=== PATIENT | male | born 1985 | race Caucasian/White ===

== ENCOUNTER 2016-10-28 09:38 | Inpatient (IN) | payer SELFPAY ==
[2016-10-28 10:01] LABS: MPV 9.3 fL (7.4-10.4)
[2016-10-28 10:21] LABS: SEG NEUTROPHIL 76 % (45-76)
[2016-10-28 10:26] LABS: BLOOD UREA NITROGEN 17 MG/DL (9-20); CALCIUM 8.9 MG/DL (8.4-10.2); CALCULATED OSMOLALITY 258 MOs/Kg (270-290); CHLORIDE 96 mEq/L (98-107); GLUCOSE 112 MG/DL (70-99); SODIUM LEVEL 132 mEq/L (137-146)
[2016-10-28] MEDS ORDERED: Pharmacy Review for Metformin - IV Contrast Given SCH (11:00)
--- NOTE | 2016-10-28 11:06 | EDPRACDOC ---
- General Information Chief Complaint: Abdominal Pain Stated Complaint: LOWER ABD PAIN Time Seen by Provider: 10/28/16 10:43 Mode Of Arrival: Car Home Medications: Home Medications No Home Medications 10/28/16 Allergies/Adverse Reactions: Allergies Allergy/AdvReac Type Severity Reaction Status Date / Time No Known Allergies Allergy Verified 10/28/16 09:48 - History of Present Illness Onset: 1 WEEK HPI: RLQ PAIN SINCE SUNDAY, WORSE SUNDAY. DECREASED PO INTAKE. PAIN 3/10 CURRENTLY. FEVERS INTERMITTENT. PAIN WORSE WITH EATING, BETTER WITH TYLENOL. ED Past Medical History - Patient Medical History Systemic History: Denies: Cancer EDM Review of Systems - Review of Systems ROS Negative Except as Marked: Yes All systems reviewed and were negative except as marked Constitutional: Fever, Loss of Appetite - Physical Exam Constitutional: Alert (Awake), No apparent distress Oriented to: Time, Person, Place Last recorded Vital Signs: Last Vital Signs Temp 97.8 F 10/28/16 09:45 Pulse 75 10/28/16 11:49 Resp 18 10/28/16 11:49 BP 146/86 10/28/16 11:49 Pulse Ox 98 10/28/16 11:49 Oxygen Pulse Oxygen Saturation 98 O2 Device Room Air Oxygen Flow Rate Fraction of Inspired Oxygen ( FIO2) - HEENT Head: Normal ( normocephalic) Eye Exam: Normal (PERRL, EOMI, Sclera white) Oropharynx: Normal (Pharynx:Moist without exudate,Gums-no swelling) Nose: No Symptoms Reported (septum midline) Neck: Normal (FROM, trachea at midline) - Respiratory/Cardiovascular Respiratory: Normal - CTA (BBS clear to auscultation without adventitious sounds ) Cardiovascular: Normal (RRR without murmur, gallop or rub) - GI Auscultation: Normal (NABS) Palpation: Normal (Soft,No rebound or guarding, non distended) Tenderness: Moderate, RLQ Bryant's Sign: Negative - Musculoskeletal Back: Normal (Non-Tender) Extremities: Normal (Normal tone, Pulses 2+ No cyanosis or edema, FROM) - Integumentary Skin: Normal, Warm, Dry Lymphatics: Normal (no adenopathy) - Neurologic Memory Impaired: Normal Motor Function: Normal (Normal tone, Pulses 2+ No cyanosis or edema, FROM) Cranial Nerve: Normal (CN II-X11 intact sensation, strength 5/5) Cerebellar: Normal Mood Description: Normal Perception: Normal - Results 10/28/16 09:52 10/28/16 09:52 WBC 22.7 xk/uL (3.8-10.8) H 10/28/16 09:52 RBC 5.44 xM/uL (4.70-6.10) 10/28/16 09:52 Hgb 15.6 g/dL (14.0-18.0) 10/28/16 09:52 Hct 46.0 % (42-52) 10/28/16 09:52 MCV 85 fL (80-94) 10/28/16 09:52 MCH 28.8 pg (27-32) 10/28/16 09:52 MCHC 34.0 g/dl (33-36) 10/28/16 09:52 RDW 13.6 % (11.5-14.5) 10/28/16 09:52 Plt Count 309 xk/uL (130-400) 10/28/16 09:52 MPV 9.3 fL (7.4-10.4) 10/28/16 09:52 Neut % (Auto) Cancelled 10/28/16 09:52 Lymph % (Auto) Cancelled 10/28/16 09:52 Clark % (Auto) Cancelled 10/28/16 09:52 Eos % (Auto) Cancelled 10/28/16 09:52 Baso % (Auto) Cancelled 10/28/16 09:52 Absolute Neuts (auto) Cancelled 10/28/16 09:52 Absolute Lymphs (auto) Cancelled 10/28/16 09:52 Seg Neuts % (Manual) 76 % (45-76) 10/28/16 09:52 Band Neutrophils % 5 % (0-5) 10/28/16 09:52 Lymphocytes % (Manual) 13 % (17-44) L 10/28/16 09:52 Monocytes % (Manual) 6 % (0-10) 10/28/16 09:52 Absolute Neutrophils 18.39 xk/uL (1.7-8.2) H 10/28/16 09:52 Absolute Lymphocytes 2.95 xk/uL (0.65-4.75) 10/28/16 09:52 Atypical Lymphocytes Few 10/28/16 09:52 Toxic Granulation 1+ 10/28/16 09:52 Platelet Estimate Norm (NORMAL) 10/28/16 09:52 RBC Morphology Norm 10/28/16 09:52 Sodium 132 mEq/L (137-146) L 10/28/16 09:52 Potassium 3.4 mEq/L (3.5-5.1) L 10/28/16 09:52 Chloride 96 mEq/L (98-107) L 10/28/16 09:52 Carbon Dioxide 22 mMOL/L (22-33) 10/28/16 09:52 Anion Gap 17 mEq/L (8-16) H 10/28/16 09:52 BUN 17 MG/DL (9-20) 10/28/16 09:52 Creatinine 0.80 MG/DL (0.66-1.25) 10/28/16 09:52 Estimated GFR (MDRD) > 60 mL/min (>=60) 10/28/16 09:52 Glucose 112 MG/DL (70-99) H 10/28/16 09:52 Calculated Osmolality 258 MOs/Kg (270-290) L 10/28/16 09:52 Calcium 8.9 MG/DL (8.4-10.2) 10/28/16 09:52 Total Bilirubin 1.7 MG/DL (0.2-1.3) H 10/28/16 09:52 AST 109 IU/L (17-59) H 10/28/16 09:52 ALT 133 IU/L (21-72) H 10/28/16 09:52 Alkaline Phosphatase 212 IU/L (38-126) H 10/28/16 09:52 Total Protein 8.0 G/DL (6.3-8.2) 10/28/16 09:52 Albumin 4.0 G/DL (3.5-5.0) 10/28/16 09:52 Lab Results 10/28/16 10/28/16 09:52 09:52 WBC 22.7 H RBC 5.44 Hgb 15.6 Hct 46.0 MCV 85 MCH 28.8 MCHC 34.0 RDW 13.6 Plt Count 309 MPV 9.3 Neut % (Auto) Cancelled Lymph % (Auto) Cancelled Clark % (Auto) Cancelled Eos % (Auto) Cancelled Baso % (Auto) Cancelled Absolute Neuts (auto) Cancelled Absolute Lymphs (auto) Cancelled Seg Neuts % (Manual) 76 Band Neutrophils % 5 Lymphocytes % (Manual) 13 L Monocytes % (Manual) 6 Absolute Neutrophils 18.39 H Absolute Lymphocytes 2.95 Atypical Lymphocytes Few Toxic Granulation 1+ Platelet Estimate Norm RBC Morphology Norm Sodium 132 L Potassium 3.4 L Chloride 96 L Carbon Dioxide 22 Anion Gap 17 H BUN 17 Creatinine 0.80 Estimated GFR (MDRD) > 60 Glucose 112 H Calculated Osmolality 258 L Calcium 8.9 Total Bilirubin 1.7 H AST 109 H ALT 133 H Alkaline Phosphatase 212 H Total Protein 8.0 Albumin 4.0 - Departure Yes I personally saw and evaluated the patient. Disposition: Admit IP To This Hospital Condition: Stable Final Diagnosis: Acute perforated appendicitis, Abscess, periappendiceal Decision to Admit Time: 12:26 Decision to admit date: 10/28/16 Decision to admit: from ED - Physician Consulted Surgery Time Called: 12:26 Provider Called: Santosh Armas Time Account Resolution Specialist Returned Call: 12:27
[2016-10-28] MEDS ORDERED: ONDANSETRON HCL 4 MG/2 ML VIAL IV ONE (11:53)
[2016-10-28] MEDS ORDERED: PIPERACILLIN AND TAZOBACTAM 4.5 GM in D5W 100 ML IV ONE (12:30)
--- NOTE | 2016-10-28 12:31 | DIRPT ---
CLINICAL DATA: Right lower quadrant pain for 6 days, WBC 22.7 EXAM: CT ABDOMEN AND PELVIS WITH CONTRAST TECHNIQUE: Multidetector CT imaging of the abdomen and pelvis was performed using the standard protocol following bolus administration of intravenous contrast. CONTRAST: 100 cc Isovue COMPARISON: None. FINDINGS: Lung bases are unremarkable. Sagittal images of the spine shows mild degenerative changes lower thoracic spine. Enhanced liver, pancreas, spleen and adrenal glands are unremarkable. Abdominal aorta is unremarkable. No calcified gallstones are noted within gallbladder. Kidneys are symmetrical in size and enhancement. No hydronephrosis or hydroureter. There is inflammatory process in right lower quadrant just posterior to cecum and terminal ileum. Multiple foci of free air are noted in adjacent pericolonic mesentery. There is partially visualized inflamed appendix measures 1.2 cm in diameter axial image 85. There is free air adjacent to appendix base and there is a adjacent mesenteric abscess measures at least 4.3 cm. Findings are highly suspicious for perforated appendicitis with periappendiceal abscess. The terminal ileum and cecum are empty collapsed. There is no small bowel obstruction. There is stranding of mesenteric fat and right lower quadrant surrounding the posterior cecum. Small mesenteric lymph nodes are noted the largest measures 1.3 cm probable reactive. No distal colonic obstruction. There is mild thickening of mid sigmoid colon wall just lateral to inflammatory process in right lower quadrant probable satellite inflammation. The urinary bladder is unremarkable. Prostate gland and seminal vesicles are unremarkable. Small amount of free fluid with enhancing wall is noted in posterior pelvis just above the distal sigmoid colon axial image 86 measures 3.4 cm. This is suspicious for infected loculated peritoneal fluid. IMPRESSION: 1. There is significant inflammatory process in right lower quadrant posterior to the cecum and terminal ileum measures at least 12 cm. Significant stranding of mesenteric fat and multiple foci of free air are noted within mesentery. There is a inflamed appendix partially visualized. There is an abscess at the appendix base region measures at least 4.3 cm. Findings are consistent with perforated appendicitis and periappendiceal abscess. There is some satellite inflammation of the wall of mid sigmoid colon. 2. No small bowel obstruction. 3. Small reactive lymph nodes are noted in right lower quadrant mesentery. 4. No hydronephrosis or hydroureter. 5. Unremarkable urinary bladder. Small amount of free fluid with enhancing wall is noted in posterior pelvis just above the distal sigmoid colon axial image 86 measures 3.4 cm. This is suspicious for infected loculated peritoneal fluid. Electronically Signed By: Silvino Pearl M.D. On: 10/28/2016 12:28
[2016-10-28] MEDS ORDERED: ACETAMINOPHEN 650 MG SUPP PR PRN (12:56)
[2016-10-28] MEDS ORDERED: ONDANSETRON HCL 4 MG/2 ML VIAL IV PRN (12:57)
[2016-10-28] MEDS ORDERED: PROMETHAZINE 25 MG/ML VIAL IV PRN (12:58)
[2016-10-28] MEDS ORDERED: MORPHINE 2 MG/ML INJECTION IV PRN ×2 (13:00→13:15)
[2016-10-28] MEDS ORDERED: OXYCODONE HCL 5 MG TABLET PO PRN ×3 (13:01→13:17)
[2016-10-28] MEDS: NS 1,000 ML IV SCH ×2 (13:22→23:23)
[2016-10-28] MEDS ORDERED: METRONIDAZOLE 500 MG IV SCH (14:00)
[2016-10-28] MEDS ORDERED: Vaccine Screening Complete SCH (14:00)
[2016-10-28] MEDS: METRONIDAZOLE 500 MG IV SCH ×2 (14:43→19:18)
--- NOTE | 2016-10-28 15:04 | HISTPHYS ---
- Chief Complaint RLQ Pain - History of Present Illness 31 YO WM came to ER with increasing RLQ abd pain. Had pain initially about a week or more ago. Had some fever but this went away. No current N/V. NO alleviating factors. Came to ER and was found to have periappendiceal abscess. - Medical History Cardiac History: Reports: No Significant History Respiratory History: Reports: No Significant History GI/ History: Reports: No Significant History Musculoskeletal History: Reports: No Significant History Systemic History: Denies: Cancer Neurological History: Reports: No Significant History - Surgical History Reports: No Significant History - Medictions/Allergies Allergies No Known Allergies Allergy (Verified 10/28/16 09:48) Home Medications No Home Medications 10/28/16 - Social History Travel Outside of [place] in the Last 3 Months?: No Smoking Status: Never smoker - Review of Systems Constitutional: Fever, Loss of Appetite. negative: Chills Eyes: negative: Blurred Vision, Pain Ears: negative: Hearing Loss, Tinnitus Nose: negative: Discharge, Deformity Respiratory: negative: Cough, Hemoptysis, Shortness of Breath, Wheezing Cardiovascular: negative: Chest Pain, Edema, Orthopnea, Palpitations Gastrointestinal: Nausea, Abdominal Pain. negative: Vomiting, Diarrhea, Melena , Hematochezia Neurological: negative: Headache, Numbness, Seizure Musculoskeletal:: negative: Joint Pain, Muscle Pain Integumentary: negative: Itching, Rash, Wound Allergic/Immunologic: negative: Hives, Itching Hematologic: negative: Easy Bruising, Easy Bleeding Endocrine: negative: Weight Gain, Weight Loss, Excessive Thirst, Excessive Hunger Psychiatric: negative: Anxiety, Depression - Physical Exam Vital Signs: Initial Vitals Temperature 97.8 F 10/28/16 09:45 Pulse Rate 90 10/28/16 09:45 Respiratory Rate 20 10/28/16 09:45 Blood Pressure 155/96 10/28/16 09:45 Pulse Oxygen Saturation 97 10/28/16 09:45 Constitutional: No apparent distress, Alert, Agitated Oriented to: Time, Person, Place - HEENT Head: Normal. negative: Swelling, Tender Eye: negative: Edema, Scleral Icterus Nose: negative: Congestion, Discharge, Deformity Respiratory: Normal - CTA. negative: Rales, Rhonchi, Wheezes Cardiovascular: negative: Bradycardia, Irregular - GI Auscultation: Normal Palpation: negative: Enlarged liver, Mass Tenderness: Moderate, RLQ Bryant's Sign: Negative - Musculoskeletal Back: negative: Ecchymosis, CVA Tenderness Extremities: negative: Calf Tenderness, Clubbing, Cyanosis, Edema - Integumentary Skin: Warm, Dry Lymphatics: negative: Adenopathy, Inguinal Erythema - Neurologic Cranial Nerve: Normal (CN II-XII intact sensation, strength 5/5) Mood Description: Normal, Appropriate. negative: Agitated Thought: negative: Coherent, Delusions - Lab Results Labs noted CT scan reviewed - Assessment/Plan (1) RLQ abdominal pain R10.31 - RIGHT LOWER QUADRANT PAIN Acute Present on Admission: Yes (2) Leukocytosis D72.829 - ELEVATED WHITE BLOOD CELL COUNT, UNSPECIFIED Acute Present on Admission: Yes L (3) Appendicitis with abscess K35.3 - ACUTE APPENDICITIS WITH LOCALIZED PERITONITIS Acute Present on Admission: Yes Plan: Patient will need admission and IVF and IV antibiotics. Will need to arrange for percutaneous drainage of abscess.
[2016-10-28 15:39] LABS: LEUKOCYTES/URINE NEG (NEGATIVE); NITRITE/URINE NEG (NEGATIVE); URINE OCCULT BLOOD 1+ (NEG/TRACE); WBC/URINE 0-2 (0-2)
[2016-10-28] MEDS: PIPERACILLIN AND TAZOBACTAM 3.375 GM in D5W 100 ML IV SCH ×2 (17:30→23:23)
[2016-10-28] MEDS: MORPHINE 2 MG/ML INJECTION IV PRN ×3 (17:35→23:26)
[2016-10-29] MEDS: METRONIDAZOLE 500 MG IV SCH ×4 (01:30→19:45)
[2016-10-29] MEDS: MORPHINE 2 MG/ML INJECTION IV PRN ×8 (01:32→22:02)
[2016-10-29] MEDS: NS 1,000 ML IV SCH ×4 (03:53→17:06)
[2016-10-29] MEDS: PIPERACILLIN AND TAZOBACTAM 3.375 GM in D5W 100 ML IV SCH ×3 (05:28→17:05)
[2016-10-29 07:24] LABS: AUTOMATED BASOPHIL 0.3 % (0-2); AUTOMATED EOSINOPHIL 0.4 % (0-5); AUTOMATED MONOCYTE 11.5 % (3-10); AUTOMATED NEUTROPHIL 79.8 % (45-76); MPV 9.3 fL (7.4-10.4)
[2016-10-29 07:43] LABS: BLOOD UREA NITROGEN 14 MG/DL (9-20); CALCIUM 8.1 MG/DL (8.4-10.2); CALCULATED OSMOLALITY 256 MOs/Kg (270-290); CHLORIDE 93 mEq/L (98-107); GLUCOSE 102 MG/DL (70-99); SODIUM LEVEL 132 mEq/L (137-146)
--- NOTE | 2016-10-29 12:02 | PCM.SURGRO ---
- Subjective Patient: Reports: Feels better, Still having pain - Objective / Physical Exam Vital Signs: Temperature: 98.9 F (10/29/16 10:12) HR: 71 (10/29/16 10:12)RR: 20 (10/29/16 10: 12) BP: 135/76 (10/29/16 10:12)Pulse Ox: 96 (10/29/16 10:12) General: Alert, Oriented x3, Cooperative HEENT: Normal, EOMI, Anicteric Sclera Respiratory: Normal - CTA. negative: Rales, Rhonchi, Wheezes Cardiovascular: Regular rate and rhythm, No Gallops,Rubs/Murmurs Gastrointestinal: Soft, Tender (RLQ) Back: Normal. negative: Ecchymosis, CVA Tenderness Extremities: negative: Swelling, Edema, Clubbing, Cyanosis Psych/Mental Status: Appropriate, Cooperative. negative: Agitated, Anxious Neurological: Normal speech. negative: Drowsy, Somnolent Skin: Warm,Dry and Intact, No rashes, No breakdown Laboratory/Diagnostics Reviewed: 10/29/16 06:45 10/29/16 06:45 Laboratory Results - last 24 hr 10/28/16 10/29/16 10/29/16 15:30 06:45 06:45 WBC 17.9 H RBC 4.89 Hgb 13.8 L D Hct 41.4 L MCV 85 MCH 28.3 MCHC 33.4 RDW 13.8 Plt Count 275 MPV 9.3 Neut % (Auto) 79.8 H Lymph % (Auto) 8.0 L Ponce % (Auto) 11.5 H Eos % (Auto) 0.4 Baso % (Auto) 0.3 Absolute Neuts (auto) 14.14 H Absolute Lymphs (auto) 1.43 Sodium 132 L Potassium 4.1 Chloride 93 L Carbon Dioxide 27 Anion Gap 16 BUN 14 Creatinine 0.90 Estimated GFR (MDRD) > 60 Glucose 102 H Calculated Osmolality 256 L Calcium 8.1 L Urine Color Yellow Urine Clarity Sl hzy Urine pH 5.0 Ur Specific [place] 1.020 Urine Protein Neg Urine Glucose (UA) Neg Urine Ketones 1+ H Urine Occult Blood 1+ H Urine Nitrite Neg Urine Bilirubin Neg Urine Urobilinogen 0.2 Ur Leukocyte Esterase Neg Urine RBC 2-5 H Urine WBC 0-2 Ur Epithelial Cells Occ - Assessment and Plan (1) RLQ abdominal pain Acute R10.31 - RIGHT LOWER QUADRANT PAIN Present on Admission: Yes (2) Leukocytosis Acute D72.829 - ELEVATED WHITE BLOOD CELL COUNT, UNSPECIFIED Present on Admission: Yes L (3) Appendicitis with abscess Acute K35.3 - ACUTE APPENDICITIS WITH LOCALIZED PERITONITIS Present on Admission: Yes Plan: WBC decreased. Cont with IV antibiotics. Plan to have percutaneous drainage of abscess tomorrow by Int Rad.
[2016-10-30] MEDS: PIPERACILLIN AND TAZOBACTAM 3.375 GM in D5W 100 ML IV SCH ×5 (01:03→22:38)
[2016-10-30] MEDS: MORPHINE 2 MG/ML INJECTION IV PRN ×9 (01:08→22:40)
[2016-10-30] MEDS: METRONIDAZOLE 500 MG IV SCH ×4 (03:32→20:31)
[2016-10-30] MEDS: NS 1,000 ML IV SCH ×4 (06:23→20:31)
[2016-10-30 07:23] LABS: MPV 9.1 fL (7.4-10.4)
[2016-10-30 07:27] LABS: PARTIAL THROMB. TIME 25.9 SEC (22-35); PT-INR 1.2
[2016-10-30 07:35] LABS: BLOOD UREA NITROGEN 9 MG/DL (9-20); CALCULATED OSMOLALITY 255 MOs/Kg (270-290); CHLORIDE 98 mEq/L (98-107); GLUCOSE 113 MG/DL (70-99); SODIUM LEVEL 132 mEq/L (137-146)
[2016-10-30 08:03] LABS: SEG NEUTROPHIL 66 % (45-76)
--- NOTE | 2016-10-30 13:42 | PCM.SURGRO ---
- Subjective Patient: Reports: No new complaints, Feels better - Objective / Physical Exam Vital Signs: Temperature: 99.2 F (10/30/16 05:29) HR: 74 (10/30/16 05:29)RR: 20 (10/30/16 05: 29) BP: 132/33 (10/30/16 05:29)Pulse Ox: 96 (10/30/16 05:29) General: Alert, Oriented x3, Cooperative HEENT: Normal, EOMI, Anicteric Sclera Respiratory: Normal - CTA. negative: Diminished, Rales, Retractions, Rhonchi, Stridor Cardiovascular: Regular rate and rhythm, No Gallops,Rubs/Murmurs, Good Pedal Pulses Gastrointestinal: Soft, Tender. negative: Guarding, Firm Back: negative: Ecchymosis, CVA Tenderness Extremities: Normal pulses. negative: Swelling, Clubbing, Cyanosis Psych/Mental Status: Appropriate, Normal Affect, Cooperative. negative: Agitated, Anxious Skin: Warm,Dry and Intact, No rashes Laboratory/Diagnostics Reviewed: 10/30/16 06:55 10/30/16 06:55 Laboratory Results - last 24 hr 10/30/16 10/30/16 10/30/16 06:55 06:55 06:55 WBC 17.9 H RBC 4.72 Hgb 13.6 L Hct 40.2 L MCV 85 MCH 28.7 MCHC 33.8 RDW 13.7 Plt Count 273 MPV 9.1 Neut % (Auto) Cancelled Lymph % (Auto) Cancelled Snyder % (Auto) Cancelled Eos % (Auto) Cancelled Baso % (Auto) Cancelled Absolute Neuts (auto) Cancelled Absolute Lymphs (auto) Cancelled Seg Neuts % (Manual) 66 Band Neutrophils % 20 H Lymphocytes % (Manual) 11 L Monocytes % (Manual) 1 Metamyelocytes % 1 H Myelocytes % 1 H Absolute Neutrophils 15.39 H Absolute Lymphocytes 1.97 Toxic Granulation 1+ Platelet Estimate Norm RBC Morphology Norm PT 12.0 H INR 1.2 APTT 25.9 Sodium 132 L Potassium 3.5 Chloride 98 Carbon Dioxide 23 Anion Gap 15 BUN 9 Creatinine 0.60 L Estimated GFR (MDRD) > 60 Glucose 113 H Calculated Osmolality 255 L Calcium 8.0 L - Assessment and Plan (1) RLQ abdominal pain Acute R10.31 - RIGHT LOWER QUADRANT PAIN Present on Admission: Yes (2) Leukocytosis Acute D72.829 - ELEVATED WHITE BLOOD CELL COUNT, UNSPECIFIED Present on Admission: Yes L (3) Appendicitis with abscess Acute K35.3 - ACUTE APPENDICITIS WITH LOCALIZED PERITONITIS Present on Admission: Yes Plan: Spoke with interventional radiology today. They will arrange to have percutaneous drainage fo abscess tomorrow in AM. Cont with IV antibiotics.
[2016-10-31] MEDS: METRONIDAZOLE 500 MG IV SCH ×4 (01:43→19:38)
[2016-10-31] MEDS: MORPHINE 2 MG/ML INJECTION IV PRN ×9 (01:46→23:58)
[2016-10-31] MEDS: PIPERACILLIN AND TAZOBACTAM 3.375 GM in D5W 100 ML IV SCH ×4 (04:33→23:58)
[2016-10-31] MEDS ORDERED: FENTANYL 100 MCG/2 ML VIAL ONE (08:02)
[2016-10-31] MEDS ORDERED: MIDAZOLAM 2 MG/2 ML VIAL ONE (08:02)
[2016-10-31] MEDS ORDERED: NALOXONE 0.4 MG/ML AMPULE ONE (08:03)
[2016-10-31] MEDS ORDERED: FLUMAZENIL 0.1 MG/ML INJ 5 ML VIAL IV ONE (08:03)
[2016-10-31] MEDS ORDERED: LIDOCAINE 1% 5 ML (METHYLPARABEN FREE) ONE (08:03)
--- NOTE | 2016-10-31 09:07 | DIRPT ---
CLINICAL DATA: Perforated appendicitis with extraluminal pockets of air and fluid by prior CT. Evaluation is performed prior to potential percutaneous drainage of appendiceal abscess. EXAM: CT PELVIS WITHOUT CONTRAST TECHNIQUE: Multidetector CT imaging of the pelvis was performed following the standard protocol without intravenous contrast. COMPARISON: 10/28/2016 FINDINGS: Overall appearance of a complex and multiloculated ruptured appendicitis is worse compared to the prior study. More extensive extraluminal air pockets are seen extending superiorly in the right lower quadrant mesentery with overall craniocaudad extent of inflammation measuring approximately 14.5 cm. There also are larger multiple pockets of fluid around the ruptured appendix. The distal ileum show secondary inflammation and thickening. No evidence of significant small bowel obstruction or ileus of bowel. Some ingested oral contrast does reach the proximal colon. Extraluminal air appears to be confined to the extensive right lower quadrant inflammatory process with no significant pockets of free air in the nondependent peritoneal cavity. No visualize appendicolith by CT. IMPRESSION: 1. Significant worsening of multiloculated ruptured appendicitis with more extensive extraluminal pockets of air and fluid seen throughout the right lower quadrant mesentery. 2. After discussion with Dr. Armas by telephone, it was decided to not pursue percutaneous catheter drainage under CT guidance today given interval evidence of significant worsening by CT. Electronically Signed By: Ariel Malhotra M.D. On: 10/31/2016 09:05
[2016-10-31] MEDS ORDERED: Fluconazole 400 mg in NS 400 MG/200 ML RTU IV ONE (11:00)
--- NOTE | 2016-10-31 11:06 | PCM.SURGRO ---
- Subjective Patient: Reports: No new complaints, Feels better - Objective / Physical Exam Vital Signs: Temperature: 98.6 F (10/31/16 08:00) HR: 78 (10/31/16 08:00)RR: 18 (10/31/16 08: 00) BP: 130/74 (10/31/16 08:00)Pulse Ox: 97 (10/31/16 08:00) General: Alert, Oriented x3, Cooperative HEENT: Normal, Anicteric Sclera Respiratory: Normal - CTA. negative: Diminished, Rales, Rhonchi, Wheezes Cardiovascular: Regular rate and rhythm, No Gallops,Rubs/Murmurs Gastrointestinal: Soft, Tender. negative: Distended Back: negative: Ecchymosis, CVA Tenderness Extremities: negative: Tenderness, Swelling, Edema, Clubbing Psych/Mental Status: negative: Cooperative, Anxious Skin: No rashes, No breakdown Laboratory/Diagnostics Reviewed: 10/30/16 06:55 10/30/16 06:55 - Assessment and Plan (1) RLQ abdominal pain Acute R10.31 - RIGHT LOWER QUADRANT PAIN Present on Admission: Yes (2) Leukocytosis Acute D72.829 - ELEVATED WHITE BLOOD CELL COUNT, UNSPECIFIED Present on Admission: Yes L (3) Appendicitis with abscess Acute K35.3 - ACUTE APPENDICITIS WITH LOCALIZED PERITONITIS Present on Admission: Yes Plan: Patient with perforated appendix with abscess. He was sched to have percutaneous drainage today. After reviewing CT it appears that this would not help resolve the underlying problem as it looks worse than before despite antibiotic therapy. Will need to have surgical drainage but this may also need bowel resection. He understands and agrees to proceed with surgical intervention. Risks of bleeding, infection, and even need for ostomy all discussed. All his questions were answered.
[2016-10-31] MEDS: NS 1,000 ML IV SCH ×3 (11:13→22:13)
[2016-11-01] MEDS: METRONIDAZOLE 500 MG IV SCH ×4 (01:44→20:30)
[2016-11-01] MEDS: MORPHINE 2 MG/ML INJECTION IV PRN ×2 (04:10→08:51)
[2016-11-01] MEDS: PIPERACILLIN AND TAZOBACTAM 3.375 GM in D5W 100 ML IV SCH ×4 (05:31→23:27)
[2016-11-01] MEDS: NS 1,000 ML IV SCH ×4 (05:31→20:34)
[2016-11-01] MEDS ORDERED: NEOSTIGMINE 1 MG/1 ML (1:1000) INJ 10 ML MDV IM ONE (10:00)
[2016-11-01] MEDS ORDERED: MIDAZOLAM 2 MG/2 ML VIAL IV ONE (10:00)
[2016-11-01] MEDS ORDERED: ROCURONIUM 50 MG/5 ML VIAL IV ONE (10:00)
[2016-11-01] MEDS ORDERED: PROPOFOL 200 MG/20 ML VIAL IV ONE (10:00)
[2016-11-01] MEDS ORDERED: ONDANSETRON HCL 4 MG/2 ML VIAL IV ONE (10:00)
[2016-11-01] MEDS ORDERED: DEXAMETHASONE 4 MG/ML VIAL IV ONE (10:00)
[2016-11-01] MEDS ORDERED: HYDROmorphone 2 MG/ML VIAL IM ONE (10:00)
[2016-11-01] MEDS ORDERED: VECURONIUM 10 MG VIAL IV ONE (10:00)
[2016-11-01] MEDS ORDERED: GLYCOPYRROLATE 1 MG VIAL IM ONE (10:00)
[2016-11-01] MEDS: Fluconazole 200 mg in NS 200 MG/100 ML ML IV SCH (10:27)
[2016-11-01] MEDS ORDERED: PROMETHAZINE 25 MG/ML VIAL IV PRN ×2 (13:00)
[2016-11-01] MEDS ORDERED: ONDANSETRON HCL 4 MG ODT TAB PO PRN (13:00)
[2016-11-01] MEDS ORDERED: ONDANSETRON HCL 4 MG/2 ML VIAL IV PRN (13:00)
[2016-11-01] MEDS ORDERED: hydrALAZINE 20 MG/ML VIAL IV PRN (13:00)
[2016-11-01] MEDS ORDERED: HYDROmorphone 1 MG INJECTION IV PRN ×2 (13:00)
[2016-11-01] MEDS ORDERED: MEPERIDINE 25 MG/ML TUBEX IV PRN (13:00)
[2016-11-01] MEDS ORDERED: LABETALOL 20 MG/4 ML SYRINGE IV PRN (13:00)
[2016-11-01] MEDS ORDERED: FENTANYL 100 MCG/2 ML VIAL IV PRN ×2 (13:00)
--- NOTE | 2016-11-01 13:01 | SC.ANESPOS ---
[id number], Hemodynamically Stable, Pain Control Adequate Phase I & II Recovery Complete: Yes Apparent Anesthesia Complication: No : N - Vital Signs Blood Pressure: 133/72 Pulse: 80 Resp Rate: 18 O2 Sat: 95 Temp: 98.3 F
--- NOTE | 2016-11-01 14:20 | HIM.ANES ---
Anesthesia Evaluation & Plan - Focused Review of Systems Cardiac History: No: Hx Cardiac Disorders Gastrointestinal: No: Hx Gastrointestinal Disorders Neurological/Musculoskeletal: No: Hx Neurological Disorders Psychological: No Hx Mental/Emotional Disorders Smoking Status: Never smoker Past Social History: Denies: Substance Use Disorder Hx Stress Test (date): No Hx Echocardiogram (date): No Hx Chest Xray (date): Yes (childhood) - Focused Physical Exam NPO since: midnight Mallampati: Class II Thyromental Distance: Greater than 3 Dental: Normal - no significant findings Cardiovascular/Chest: Normal Respiratory: Lungs clear Any problems with anesthesia, including nausea and vomiting?: No Any relatives with a history of Malignant Hyperthermia?: No Does patient have a history of Malignant Hyperthermia?: No Beta Anny given (if appropriate): N/A Other: Problem List Problem Status Onset Abscess, periappendiceal Acute Acute perforated appendicitis Acute Appendicitis with abscess Acute Leukocytosis Acute RLQ abdominal pain Acute PT/PTT/INR/ PT 12.0 SEC (9.2-11.2) H 10/30/16 06:55 INR 1.2 10/30/16 06:55 APTT 25.9 SEC (22-35) 10/30/16 06:55 CBC/BMP/Other 10/30/16 06:55 10/30/16 06:55 Allergies Allergy/AdvReac Type Severity Reaction Status Date / Time No Known Allergies Allergy Verified 10/28/16 09:48 Home Medications Medication Instructions Recorded Last Taken Type No Home Medications 10/28/16 Unknown History Height and Weight Patient's height 5 ft 11 in Patient's weight 285 lb 9 oz Weight (Calculated Kilograms) 129.529 BMI 39.4 Vital Signs Temperature 98.3 F 11/01/16 13:28 Pulse Rate 70 11/01/16 13:55 Respiratory Rate 16 11/01/16 13:55 Blood Pressure 147/86 11/01/16 13:55 Pulse Oxygen Saturation 94 11/01/16 13:55 - Anesthetic Plan Anesthesia Type: General ASA Class: 1 -: I have examined this patient and reviewed the medical record. The patient has been assessed prior to anesthesia. Risks and benefits of anesthesia and anesthetic technique options have been discussed and all questions answered. The patient accepts the risk and desires me to proceed with the planned anesthetic.
[2016-11-01] MEDS ORDERED: BUPIVACAINE 0.25% 30 ML VIAL ONE (14:46)
[2016-11-01] MEDS ORDERED: CEFAZOLIN 1 GM VIAL ONE (15:58)
--- NOTE | 2016-11-01 17:47 | HIMOPRPT ---
PROCEDURE: DATE OF PROCEDURE: 11/01/16 PREOPERATIVE DIAGNOSIS: Right lower quadrant pain, ruptured appendicitis with mul;tiple abscesses POSTOPERATIVE DIAGNOSIS:same PROCEDURE: Laparoscopic drainage of pelvic abscesses SURGEON: Santosh Armas MD ANESTHESIA: General. COMPLICATIONS: None. ESTIMATED BLOOD LOSS: Minimal OPERATIVE NOTE: The patient was placed supine on the operating room table. After induction of anesthesia, patient was prepped and draped in the usual fashion. A small 5 mm incision was made in the supraumbilical region and a 5-mm Optiview trocar was placed without any difficulties. The abdomen was insufflated with CO2 until a pressure of 15mm Hg was achieved. Camera was introduced and the abdomen was inspected. Three other 5-mm ports were placed. One in the RLQ, another in the LLQ and one in the LUQ. Numerous adhesions were encountered and these were taken down. An abscess was drained and the fluid cultured. Further dissection enabled us to drain the large abscess within the mesentery. We irrigated this area and suctioned out the irrigation. Two 19 FR Brady drains were placed in the abscess cavities. These were sutured to the skin. One in the RLQ and the other in the LLQ. The wounds were all irrigated and then infiltrated with 0.25% Marcaine. The skin edges were approximated using skin juan. The patient tolerated this well. Sponge, needle, and instrument counts were correct.
[2016-11-01] MEDS: IBUPROFEN INTRAVENOUS 800 MG in NS 250 ML IV SCH (21:24)
[2016-11-02] MEDS: IBUPROFEN INTRAVENOUS 800 MG in NS 250 ML IV SCH ×3 (00:23→13:25)
[2016-11-02] MEDS: METRONIDAZOLE 500 MG IV SCH ×4 (02:26→20:33)
[2016-11-02] MEDS: NS 1,000 ML IV SCH ×3 (03:35→23:17)
[2016-11-02] MEDS: PIPERACILLIN AND TAZOBACTAM 3.375 GM in D5W 100 ML IV SCH ×4 (05:22→23:25)
[2016-11-02 07:31] LABS: AUTOMATED BASOPHIL 0.2 % (0-2); AUTOMATED LYMPH 5.9 % (17-44); AUTOMATED NEUTROPHIL 87.9 % (45-76); MPV 8.9 fL (7.4-10.4)
[2016-11-02 07:36] LABS: BLOOD UREA NITROGEN 10 MG/DL (9-20); CALCIUM 7.8 MG/DL (8.4-10.2); CALCULATED OSMOLALITY 256 MOs/Kg (270-290); CHLORIDE 101 mEq/L (98-107); GLUCOSE 123 MG/DL (70-99); SODIUM LEVEL 133 mEq/L (137-146)
[2016-11-02] MEDS: Fluconazole 200 mg in NS 200 MG/100 ML ML IV SCH (09:43)
--- NOTE | 2016-11-02 13:41 | PCM.SURGRO ---
- Subjective Patient: Reports: No new complaints, Feels better - Objective / Physical Exam Vital Signs: Temperature: 98.2 F (11/02/16 09:17) HR: 53 (11/02/16 09:17)RR: 18 (11/02/16 09: 17) BP: 130/65 (11/02/16 09:17)Pulse Ox: 95 (11/02/16 09:17) General: Alert, Oriented x3, Cooperative HEENT: Normal, EOMI, Anicteric Sclera Respiratory: Normal - CTA. negative: Rales, Rhonchi Cardiovascular: Regular rate and rhythm, No Gallops,Rubs/Murmurs Gastrointestinal: Soft, Tender. negative: Distended Extremities: negative: Edema, Clubbing, Cyanosis Laboratory/Diagnostics Reviewed: 11/02/16 06:48 11/02/16 06:48 Laboratory Results - last 24 hr 11/02/16 11/02/16 06:48 06:48 WBC 15.1 H RBC 4.34 L Hgb 12.4 L Hct 37.3 L MCV 86 MCH 28.6 MCHC 33.3 RDW 13.8 Plt Count 284 MPV 8.9 Neut % (Auto) 87.9 H Lymph % (Auto) 5.9 L [place] % (Auto) 6.0 Eos % (Auto) 0.0 Baso % (Auto) 0.2 Absolute Neuts (auto) 13.14 H Absolute Lymphs (auto) 0.76 Sodium 133 L Potassium 4.2 Chloride 101 Carbon Dioxide 21 L Anion Gap 15 BUN 10 Creatinine 0.60 L Estimated GFR (MDRD) > 60 Glucose 123 H Calculated Osmolality 256 L Calcium 7.8 L - Assessment and Plan (1) RLQ abdominal pain Acute R10.31 - RIGHT LOWER QUADRANT PAIN Present on Admission: Yes (2) Leukocytosis Acute D72.829 - ELEVATED WHITE BLOOD CELL COUNT, UNSPECIFIED Present on Admission: Yes L (3) Appendicitis with abscess Acute K35.3 - ACUTE APPENDICITIS WITH LOCALIZED PERITONITIS Present on Admission: Yes Plan: Multiple abscesses were drained yesterday. Will advance diet, D/C taylor. Continue with IV antibiotics. Cultures pending.
[2016-11-02] MEDS ORDERED: LR 0 ML IV ONE (14:00)
[2016-11-03] MEDS: METRONIDAZOLE 500 MG IV SCH ×4 (01:07→20:08)
[2016-11-03] MEDS: ACETAMINOPHEN 325 MG/TAB TABLET PO PRN ×3 (01:09→13:30)
[2016-11-03] MEDS: NS 1,000 ML IV SCH ×3 (01:09→17:30)
[2016-11-03] MEDS: PIPERACILLIN AND TAZOBACTAM 3.375 GM in D5W 100 ML IV SCH ×3 (05:25→17:28)
[2016-11-03 07:24] LABS: BLOOD UREA NITROGEN 7 MG/DL (9-20); CALCIUM 7.3 MG/DL (8.4-10.2); CALCULATED OSMOLALITY 262 MOs/Kg (270-290); CHLORIDE 105 mEq/L (98-107); GLUCOSE 90 MG/DL (70-99); SODIUM LEVEL 137 mEq/L (137-146)
[2016-11-03 09:19] LABS: TOTAL CELL COUNT 100
[2016-11-03 09:20] LABS: SEG NEUTROPHIL 66 % (45-76)
--- NOTE | 2016-11-03 09:46 | PCM.SURGRO ---
- Subjective Post Op Day: 2 Patient: Reports: Feels better, Flatus, No Bowel Movement, Afebrile. Denies: Nausea, Vomiting, Shortness of breath - Objective / Physical Exam Vital Signs: Temperature: 97.9 F (11/03/16 06:19) HR: 80 (11/03/16 06:19)RR: 18 (11/03/16 06: 19) BP: 116/69 (11/03/16 06:19)Pulse Ox: 93 (11/03/16 06:19) General: Alert, Oriented x3, Cooperative HEENT: Normal, Anicteric Sclera Respiratory: negative: Rales, Rhonchi, Wheezes Cardiovascular: Regular rate and rhythm, No Gallops,Rubs/Murmurs Gastrointestinal: Soft, Tender. negative: Distended, Guarding Extremities: negative: Clubbing, Cyanosis Psych/Mental Status: Normal Affect, Cooperative. negative: Disoriented Neurological: Normal speech. negative: Drowsy, Somnolent Skin: Warm,Dry and Intact, No rashes, No breakdown Surgical wound site: Clean/Dry. negative: Erythema Lymphatics: Normal Laboratory/Diagnostics Reviewed: 11/03/16 05:45 11/03/16 05:45 Laboratory Results - last 24 hr 11/03/16 11/03/16 05:45 05:45 WBC 13.2 H RBC 4.16 L Hgb 11.8 L Hct 35.6 L MCV 86 MCH 28.4 MCHC 33.2 RDW 14.0 Plt Count 291 MPV 9.0 Neut % (Auto) Cancelled Lymph % (Auto) Cancelled [place] % (Auto) Cancelled Eos % (Auto) Cancelled Baso % (Auto) Cancelled Absolute Neuts (auto) Cancelled Absolute Lymphs (auto) Cancelled Seg Neuts % (Manual) 66 Band Neutrophils % 10 H Lymphocytes % (Manual) 17 Monocytes % (Manual) 6 Myelocytes % 1 H Absolute Neutrophils 10.03 H Absolute Lymphocytes 2.24 Vacuolated Neuts Few Platelet Estimate Norm RBC Morphology 1+ polychrom Sodium 137 Potassium 3.6 Chloride 105 Carbon Dioxide 24 Anion Gap 12 BUN 7 L Creatinine 0.70 Estimated GFR (MDRD) > 60 Glucose 90 Calculated Osmolality 262 L Calcium 7.3 L - Assessment and Plan (1) RLQ abdominal pain Acute R10.31 - RIGHT LOWER QUADRANT PAIN Present on Admission: Yes (2) Leukocytosis Acute D72.829 - ELEVATED WHITE BLOOD CELL COUNT, UNSPECIFIED Present on Admission: Yes L (3) Appendicitis with abscess Acute K35.3 - ACUTE APPENDICITIS WITH LOCALIZED PERITONITIS Present on Admission: Yes Plan: Patient doing well. WBC coming down. Tolerated full liquids. Will try low residue diet. Cont IV antibiotics. Increase activity.
[2016-11-03] MEDS: Fluconazole 200 mg in NS 200 MG/100 ML ML IV SCH (10:55)
[2016-11-04] MEDS: PIPERACILLIN AND TAZOBACTAM 3.375 GM in D5W 100 ML IV SCH ×5 (00:05→23:40)
[2016-11-04] MEDS: ACETAMINOPHEN 325 MG/TAB TABLET PO PRN ×2 (00:07→20:32)
[2016-11-04] MEDS: METRONIDAZOLE 500 MG IV SCH ×4 (02:10→20:47)
[2016-11-04] MEDS: NS 1,000 ML IV SCH ×4 (05:22→17:54)
--- NOTE | 2016-11-04 09:56 | PCM.SURGRO ---
- Subjective Patient: Reports: No new complaints, Feels better, Bowel Movement - Objective / Physical Exam Vital Signs: Temperature: 98.3 F (11/04/16 05:17) HR: 56 (11/04/16 05:17)RR: 18 (11/04/16 05: 17) BP: 127/76 (11/04/16 05:17)Pulse Ox: 98 (11/04/16 05:17) General: Alert, Oriented x3, Cooperative HEENT: Normal, PERRLA, EOMI Respiratory: Normal - CTA Cardiovascular: Regular rate Gastrointestinal: Soft, Bowel Sounds, Tender (Mild as expect.). negative: Distended Extremities: negative: Tenderness, Clubbing, Cyanosis Psych/Mental Status: Appropriate, Cooperative Neurological: Strength at 5/5 X4 ext, Cranial nerves 3-12 NL Surgical wound: Other (Mild drainage around the tube. Serous drainage.) - Assessment and Plan (1) Appendicitis with abscess Acute K35.3 - ACUTE APPENDICITIS WITH LOCALIZED PERITONITIS Present on Admission: Yes Comment/Plan: Doing well after drainage of abscesses. Continue ABX and care.
[2016-11-04] MEDS: Fluconazole 200 mg in NS 200 MG/100 ML ML IV SCH (10:40)
[2016-11-04] MEDS ORDERED: Medication Special Instructions SCH (13:00)
[2016-11-05] MEDS: METRONIDAZOLE 500 MG IV SCH ×4 (02:35→19:52)
[2016-11-05] MEDS: NS 1,000 ML IV SCH ×5 (02:35→23:13)
[2016-11-05] MEDS: PIPERACILLIN AND TAZOBACTAM 3.375 GM in D5W 100 ML IV SCH ×4 (05:34→23:09)
[2016-11-05 06:13] LABS: AUTOMATED BASOPHIL 0.8 % (0-2); AUTOMATED EOSINOPHIL 1.2 % (0-5); AUTOMATED LYMPH 19.7 % (17-44); AUTOMATED MONOCYTE 8.5 % (3-10); AUTOMATED NEUTROPHIL 69.8 % (45-76); MPV 9.1 fL (7.4-10.4)
[2016-11-05 06:56] LABS: BLOOD UREA NITROGEN 2 MG/DL (9-20); CALC CORRECTED 9.5 MG/DL (8.4-10.2); CALCIUM 7.8 MG/DL (8.4-10.2); CALCULATED OSMOLALITY 261 MOs/Kg (270-290); CHLORIDE 108 mEq/L (98-107); GLUCOSE 110 MG/DL (70-99); SODIUM LEVEL 137 mEq/L (137-146); TOTAL PROTEIN 5.5 G/DL (6.3-8.2)
[2016-11-05] MEDS: Fluconazole 200 mg in NS 200 MG/100 ML ML IV SCH (11:37)
--- NOTE | 2016-11-05 11:56 | PCM.SURGRO ---
- Subjective Patient: Reports: No new complaints, Feels better - Objective / Physical Exam Vital Signs: Temperature: 98 F (11/05/16 05:43) HR: 60 (11/05/16 05:43)RR: 18 (11/05/16 05:43 ) BP: 117/71 (11/05/16 05:43)Pulse Ox: 97 (11/05/16 05:43) General: Alert, Oriented x3, Cooperative HEENT: Normal, PERRLA, EOMI Respiratory: Normal - CTA. negative: Diminished, Rhonchi Cardiovascular: Regular rate, Regular rate and rhythm Gastrointestinal: Soft, Bowel Sounds. negative: Distended, Tender Extremities: negative: Tenderness, Swelling, Edema, Clubbing, Cyanosis Psych/Mental Status: Appropriate, Cooperative Neurological: Strength at 5/5 X4 ext, Cranial nerves 3-12 NL Lymphatics: Normal. negative: Adenopathy, Tender - Assessment and Plan (1) Appendicitis with abscess Acute K35.3 - ACUTE APPENDICITIS WITH LOCALIZED PERITONITIS Present on Admission: Yes Comment/Plan: Marked improvement. Possible home tomorrow. Continue ABx. Labs ok.
[2016-11-05] MEDS: ACETAMINOPHEN 325 MG/TAB TABLET PO PRN (17:26)
[2016-11-06] MEDS: METRONIDAZOLE 500 MG IV SCH ×3 (01:26→14:24)
[2016-11-06] MEDS: PIPERACILLIN AND TAZOBACTAM 3.375 GM in D5W 100 ML IV SCH ×2 (04:42→12:39)
[2016-11-06 05:57] VITALS: BP 116/68; PULSE 65; TEMP 98.1
[2016-11-06 06:00] VITALS: BMI 39.9
[2016-11-06] MEDS: Fluconazole 200 mg in NS 200 MG/100 ML ML IV SCH (10:50)
--- NOTE | 2016-11-06 13:29 | PCM.DCS92 ---
- Final/Secondary Discharge Diagnosis (1) RLQ abdominal pain Resolved R10.31 - RIGHT LOWER QUADRANT PAIN Present on Admission: Yes (2) Leukocytosis Resolved D72.829 - ELEVATED WHITE BLOOD CELL COUNT, UNSPECIFIED Present on Admission: Yes L (3) Appendicitis with abscess Chronic K35.3 - ACUTE APPENDICITIS WITH LOCALIZED PERITONITIS Present on Admission: Yes Discharge Disposition: Home Discharge Condition: Stable Cognitive Discharge Status: Unimpaired Fuctional Discharge Status: Independent Home Medications/ New Prescriptions: No Action No Home Medications 0 NA DIR #0 info Diet at Discharge: As Tolerated Activity: As Tolerated, No Heavy Lifting - DC Summary Notes Hospital Course Note:: Discharge summary on patient named SANTOSH LAWSON admitted to [facility] on 10/28/16 by Santosh Armas MD. Date of discharge is 11/06/16. Patient was admitted with perforated appendix and large abscess. This progressively worsened despite IV antibiotics. Attempted to have percutaneous drainage of abscess but this was not possible. HE was taken to OR and had laparoscopic drainage of abscesses. The appendix was never identified. Patient was placed on IV antibiotics. He is now afebrile with a normal WBC and no pain. Will plan to D/C home and have him follow up with me as outpatient. Will need to be on PO antibiotics and have f/u CT of pelvis next week. - Physical Exam Vital Signs: Initial Vitals Temperature 97.8 F 10/28/16 09:45 Pulse Rate 90 10/28/16 09:45 Respiratory Rate 20 10/28/16 09:45 Blood Pressure 155/96 10/28/16 09:45 Pulse Oxygen Saturation 97 10/28/16 09:45 Constitutional: No apparent distress Oriented to: Time, Person, Place - HEENT Head: Normal Respiratory: Normal - CTA Cardiovascular: Normal - GI Auscultation: Normal Palpation: Normal. negative: Enlarged liver, Mass Tenderness: Non tender. negative: Guarding, Rebound - Musculoskeletal Back: Normal. negative: Ecchymosis, CVA Tenderness Extremities: Normal. negative: Clubbing, Cyanosis, Edema - Integumentary Skin: Warm, Dry
== END 2016-11-06 14:54 | disposition home or self-care (01) | DRG 358 ==
LOC: ED 09:38 → MPS3 12:28
PROVIDERS: ADMIT Surgery; ATTEND Surgery
PROC: 0W9J4ZZ Drainage of Pelvic Cavity, Percutaneous Endoscopic Approach (ICD-10-PCS; principal; 2016-11-01 13:30)
DX: K35.3 Acute appendicitis with localized peritonitis (principal)
CPT/HCPCS: 36415; 72192; 74177; 80048; 80053; 81001; 85007; 85025; 85027; 85610; 85730; 87070; 87075; 87076; 87077; 87186; 96374; 99283; A9698; J0690; J1100; J1170; J1450; J1741; J2250; J2270; J2310; J2405; J2543; J2710; J3010; J3490; J7050; J7060; S0020